=== PATIENT | male | born 1995 | race Caucasian/White ===

== ENCOUNTER 2017-05-27 15:13 | Emergency (ER) | payer BC ==
[2017-05-27 15:20] VITALS: BP 120/70; PULSE 93; RESP 16; TEMP 97.5; O2SAT 93
[2017-05-27] MEDS ORDERED: LET GEL TOPICAL 1 EA SYR TP ONE ×2 (16:01→16:07)
--- NOTE | 2017-05-27 17:29 | EDPHY ---
H & P Stated Complaint: ejected off skateboard, - loc, abrasions and l thumb pain - Personal History Current Tetanus Diphtheria and Acellular Pertussis (TDAP): Yes - Medical/Surgical History Other PMH: denies - Social History Smoking Status: Current every day smoker Time Seen by Provider: 05/27/17 16:57 HPI/ROS: Chief complaint: Fell off skateboard History of present illness: This is a 21-year-old male who presents to the emergency department after he fell off his skateboard just prior to arrival. Patient was riding downhill when he lost control and fell. He scraped up his arms and legs. However he is primarily concerned about his left hand. He has pain at the base of the thumb. It hurts to move. He states he did not hit his head or neck. There was no loss of consciousness. Other than pain in his hand he feels well. No pain in the head, neck, back, chest, abdomen, pelvis. No neurologic symptoms such as paresthesias, weakness or paralysis. His tetanus is up-to-date. (Gavin Green) - Physical Exam Exam: General Appearance: Alert, nontoxic Eyes: PERRLA Respiratory: Lungs clear to auscultation bilaterally Cardiac: Regular rate and rhythm. Neurological: Alert and oriented x4. Strength and sensation intact and symmetrical. Sensation is intact in his left thumb using light touch and two- point discrimination. Skin: Multiple abrasions to the arms and legs, no repairable lesions. No open wounds over the left thumb consistent with an open fracture. Musculoskeletal: The head is nontender. The spine is nontender without crepitus, bony deformity or step-off. There is tenderness at the base of the left thumb. The rest of the hand as well as wrist including over the snuffbox in the rest of the left upper extremity is nontender. The other extremities are nontender and he is moving them well. (Gavin Green) Constitutional: Initial Vital Signs Temperature (C) 36.4 C 05/27/17 15:17 Heart Rate 93 05/27/17 15:17 Respiratory Rate 16 05/27/17 15:17 Blood Pressure 120/70 05/27/17 15:17 O2 Sat (%) 93 05/27/17 15:17 O2 Delivery Mode Room Air Allergies/Adverse Reactions: No Known Allergies Allergy (Unverified 05/27/17 15:15) Home Medications: Medication Instructions Recorded Albuterol 05/27/17 Claritin 05/27/17 Medical Decision Making - Diagnostics Imaging: I viewed and interpreted images myself Procedures: Procedure: Splint placement. A thumb spica splint was applied. After application of the splint I returned and re-examined the patient. The splint was adequately immobilizing the joint and distal to the splint the patient's circulation and sensation was intact. ( Gavin Green) ED Course/Re-evaluation: Patient seen under the supervision of my secondary supervising physician Dr. Onelia Morgan. Patient presents to the emergency department after falling off of his skateboarding injuring himself. He primarily complains of pain in his left thumb. X-ray is concerning for fracture. He is splinted. His left thumb remains neurovascularly intact. He does have abrasions to other parts of the body that have been cleaned and dressed. No repairable lesions. No evidence of more significant trauma. He will be discharged home. Home care is discussed. He is referred to hand surgery for further evaluation and care. Return precautions are given. Patient voiced understanding and agreement with plan. ( Gavin Green) The patient was evaluated and managed by the physician psychologist research assistant. I have reviewed this chart and I agree with the findings and plan of care as documented , as indicated by my signature. I am the secondary supervising physician. ( Onelia Morgan) Differential Diagnosis: Included but not limited to soft tissue injuries, bony fractures or joint dislocations, unlikely significant trauma to the head, neck, back, chest or abdomen (Gavin Green) - Data Points Medications Given: Discontinued Medications Tetracaine/Epinephrine/Lidocaine (Let Gel Topical) 1 ea TP EDNOW ONE Stop: 05/27/17 16:02 Last Admin: 05/27/17 16:10 Dose: 1 ea Departure - Departure Disposition: Home, Routine, Self-Care Clinical Impression: Hand fracture, left, Abrasions of multiple sites Condition: Good Instructions: Hand Fracture (ED), Splint Care (ED), Acute Wounds (ED) Additional Instructions: Follow-up with hand surgery for continued evaluation and care Use ibuprofen 600 mg 3 times a day for the next 2-3 days as needed for pain Elevate the injury as much as possible Keep wounds clean with soap and water and apply antibacterial ointment multiple times daily If symptoms worsen or new symptoms develop return to the emergency room for recheck Referrals: SAAD,UNKNOWN [Other] - As per Instructions Reyes Sanchez MD [Medical Doctor] - As per Instructions
== END 2017-05-27 17:42 | disposition home or self-care (01) ==
PROC: 2W3FX1Z Immobilization of Left Hand using Splint (ICD-10-PCS; principal; 2017-05-27)
DX: S62.235A Other nondisplaced fracture of base of first metacarpal bone, left hand, initial encounter for closed fracture (principal); S40.811A Abrasion of right upper arm, initial encounter; S40.812A Abrasion of left upper arm, initial encounter; S80.811A Abrasion, right lower leg, initial encounter; S80.812A Abrasion, left lower leg, initial encounter; F17.200 Nicotine dependence, unspecified, uncomplicated; V00.131A Fall from skateboard, initial encounter; Y99.8 Other external cause status; Y93.51 Activity, roller skating (inline) and skateboarding